=== PATIENT | female | born 1975 | race Caucasian/White ===

== ENCOUNTER 2016-08-03 00:32 | Emergency (ER) | payer OTHER ==
[~2016-08-03] VITALS: Ht 172.7 cm; Wt 82.9 kg
[~2016-08-03 00:32] MED LIST: ADDERALL30 MG PO; BACTRIM,SEPT1 TABLET PO; CIPRO500 MG PO; DELTASONE20 M1 PO; FLAGYL250 MG PO; FLEXERIL10 MG PO; INDOCIN25 MG PO; KEFLEX500 MG PO; LEVAQUIN500 MG PO; LEVAQUIN750 MG PO; LEVOFLOXACIN500 MG PO; LIBRIUM25 MG PO; METHADONE1 MG/1 ML PO; METHADONE10 MG PO; MOBIC15 MG PO; NORCO 5/3251 TABLET PO; PEPCID40 MG PO; PREDNISONE20 MG PO; PYRIDIUM100 MG PO; THIAMINE HCL100 MG PO; ULTRACET1 TABLET PO; VALIUM5 MG PO; ZOFRAN ODT4 MG PO; ZOFRAN ODT8 MG PO; ZOFRAN4 MG PO; ZOLOFT100 MG PO
[2016-08-03 01:02] LABS: CHLORIDE 105 mEq/L (99-109); POTASSIUM 3.4 mEq/L (3.7-5.4); SODIUM 140 mEq/L (136-147)
[2016-08-03 01:04] LABS: GLUCOSE 103 mg/dL (70-99)
[2016-08-03 01:05] LABS: ANION GAP 17 MEQ/L (2-14)
[2016-08-03 01:06] LABS: TOTAL BILIRUBIN 0.5 mg/dL (0.0-1.0)
[2016-08-03 01:07] LABS: ALKALINE PHOSPHATASE 124 IU/L (3-129)
[2016-08-03 01:08] LABS: GFR ESTIMATE (CALCULATED) > 59 mL/min/
[2016-08-03 01:09] LABS: UREA NITROGEN (BUN) 8 mg/dL (9-23)
[2016-08-03 01:11] LABS: LIPASE 58 U/L (1.0-51.0)
[2016-08-03 01:16] LABS: QUANTITATIVE HCG < 4.0 MIU/ML
[2016-08-03 01:38] LABS: EOSINOPHIL (%) 2.2 % (0-5); EOSINOPHIL COUNT 0.1 K/uL (0-0.3); HEMATOCRIT 32.1 % (36.0-46.0); LYMPHOCYTE COUNT 1.7 K/uL (1.0-2.8); MCH 32.7 PG (29.0-34.0); MCHC 34.3 G/DL (30.0-36.0); MCV 95.5 FL (83-99); MEAN PLAT.VOLUME 9.3 uM^3 (9.5-12.4); MONOCYTE (%) 10.3 % (3-12); MONOCYTE COUNT 0.5 K/uL (0-0.8); NEUTROPHIL (%) 53.8 % (45-76); NEUTROPHIL COUNT 2.7 K/uL (1.8-6.4); PLATELET COUNT 187 K/uL (156-360); RBC DIS.WIDTH-CV 13.7 % (11.8-14.6); RBC DIS.WIDTH-SD 43.8 % (39-53); RED BLOOD COUNT 3.36 M/uL (3.80-5.20); WHITE BLOOD COUNT 4.9 K/uL (4.1-10.2)
[2016-08-03 01:47] LABS: PROTHROMBIN TIME 10.1 (9.2-11.2); PTT 23.2 (25-32)
[2016-08-03 03:23] LABS: INFLUENZA A VIRAL ANTIGEN NEGATIVE; INFLUENZA B VIRAL ANTIGEN NEGATIVE
[2016-08-03 04:02] LABS: ADD MIUA? NO; BILIRUBIN NEGATIVE; BLOOD NEGATIVE; COLOR YELLOW ((YELLOW)); GLUCOSE (STRIP) NEGATIVE; KETONES TRACE; LEUKOCYTES NEGATIVE; NITRITE NEGATIVE; PROTEIN (STRIP) TRACE; SPECIFIC GRAVITY 1.031 (1.000-1.030); UCUL ADDED? NO
[2016-08-03 04:11] LABS: ADD MEDTOX COMMENT Y; AMPHETAMINE NEGATIVE (500 ng/mL); BARBITURATES NEGATIVE (200 ng/mL); BENZODIAZEPINES PRESUMPTIVE POSITIVE (150 ng/mL); COCAINE NEGATIVE (150 ng/mL); INTERNAL CONTROLS VALID? YES; METHADONE NEGATIVE (200 ng/mL); METHAMPHETAMINE NEGATIVE (500 ng/mL); OPIATES (MORPHINE) NEGATIVE (100 ng/mL); OXYCODONE NEGATIVE (100 ng/mL); PHENCYCLIDINE NEGATIVE (25 ng/mL); PROPOXYPHENE NEGATIVE (300 ng/mL); THC CANNABINOIDS PRESUMPTIVE POSITIVE (50 ng/mL); TRICYCLIC ANTIDEPRESSANTS NEGATIVE (300 ng/mL)
[2016-08-03] MEDS ORDERED: PROAIR HFA8.5 GM IH (04:22)
[2016-08-03] MEDS ORDERED: TORADOL10 MG PO (04:22)
[2016-08-03] MEDS ORDERED: ZOFRAN4 MG PO (04:22)
[2016-08-03] MEDS ORDERED: ZITHROMAX Z-PA250 MG PO (04:22)
[2016-08-03 04:43] VITALS: BP 118/88
[2016-08-03 05:29] LABS: BENZODIAZEPINES, URINE SCREEN POSITIVE (200 ng/mL)
== END 2016-08-03 05:04 | disposition home or self-care (01) ==
LOC: EME 00:32
PROVIDERS: Emergency Medicine
DX: J20.9 Acute bronchitis, unspecified (principal); J06.9 Acute upper respiratory infection, unspecified; N18.9 Chronic kidney disease, unspecified; M79.1 Myalgia; R05 Cough; F11.20 Opioid dependence, uncomplicated; F17.200 Nicotine dependence, unspecified, uncomplicated
CPT/HCPCS: 71020; 80053; 81003; 83690; 84702; 84999; 85025; 85027; 85610; 85730; 87493; 87502; 94640; 99281; 99284; G0480; J1100; J1885; J2405; J7030

== ENCOUNTER 2016-08-24 14:02 | Emergency (ER) | payer OTHER ==
[~2016-08-24] VITALS: Ht 172.7 cm; Wt 78.4 kg
[~2016-08-24 14:02] MED LIST changes: +PROAIR HFA8.5 GM IH; +TORADOL10 MG PO; +ZITHROMAX Z-PA250 MG PO
[2016-08-24] MEDS ORDERED: ZOLOFT100 MG PO (14:53)
[2016-08-24] MEDS ORDERED: VITAMIN D2000 UNI1 PO (14:53)
[2016-08-24] MEDS ORDERED: ADDERALL30 MG PO (14:54)
[2016-08-24 15:06] LABS: HEMATOCRIT 38.4 % (36.0-46.0); MCH 32.7 PG (29.0-34.0); MCHC 33.1 G/DL (30.0-36.0); MEAN PLAT.VOLUME 9.6 uM^3 (9.5-12.4); PLATELET COUNT 211 K/uL (156-360); RBC DIS.WIDTH-CV 16.6 % (11.8-14.6); RBC DIS.WIDTH-SD 58.5 % (39-53); RED BLOOD COUNT 3.88 M/uL (3.80-5.20); WHITE BLOOD COUNT 6.1 K/uL (4.1-10.2)
[2016-08-24 15:15] LABS: CHLORIDE 109 mEq/L (99-109); POTASSIUM 3.7 mEq/L (3.7-5.4); SODIUM 141 mEq/L (136-147)
[2016-08-24 15:18] LABS: GLUCOSE 96 mg/dL (70-99)
[2016-08-24 15:19] LABS: ANION GAP 10 MEQ/L (2-14); TOTAL BILIRUBIN 1.2 mg/dL (0.0-1.0)
[2016-08-24 15:21] LABS: ALKALINE PHOSPHATASE 115 IU/L (3-129); GFR ESTIMATE (CALCULATED) > 59 mL/min/
[2016-08-24 15:22] LABS: UREA NITROGEN (BUN) 8 mg/dL (9-23)
[2016-08-24 15:25] LABS: LIPASE 16 U/L (1.0-51.0)
[2016-08-24 15:30] LABS: QUANTITATIVE HCG < 4.0 MIU/ML
[2016-08-24 16:58] LABS: ADD MIUA? NO; BILIRUBIN NEGATIVE; BLOOD NEGATIVE; COLOR YELLOW ((YELLOW)); GLUCOSE (STRIP) NEGATIVE; KETONES NEGATIVE; LEUKOCYTES NEGATIVE; NITRITE NEGATIVE; PROTEIN (STRIP) NEGATIVE; SPECIFIC GRAVITY 1.005 (1.000-1.030); UCUL ADDED? NO; UROBILINOGEN 0.2 MG/DL (0.2-1.0)
[2016-08-24] MEDS ORDERED: GABAPENTIN300 MG PO (18:18)
[2016-08-24] MEDS ORDERED: LIBRIUM25 MG PO (18:18)
[2016-08-24 19:06] VITALS: BP 119/80
== END 2016-08-24 19:07 | disposition home or self-care (01) ==
LOC: EME 14:02
DX: F10.230 Alcohol dependence with withdrawal, uncomplicated (principal); R10.31 Right lower quadrant pain; Z88.1 Allergy status to other antibiotic agents; Z88.0 Allergy status to penicillin; Z88.2 Allergy status to sulfonamides; Z72.0 Tobacco use; F11.21 Opioid dependence, in remission
CPT/HCPCS: 74177; 80053; 81003; 83690; 84702; 85027; 99281; 99285; J2060; J7030

== ENCOUNTER 2017-07-05 20:15 | Emergency (ER) | payer OTHER ==
[~2017-07-05 20:15] MED LIST changes: +GABAPENTIN300 MG PO; +VITAMIN D2000 UNI1 PO
== END 2017-07-05 20:45 | disposition left against medical advice (07) ==
LOC: EME 20:15
DX: M79.89 Other specified soft tissue disorders (principal); Z53.21 Procedure and treatment not carried out due to patient leaving prior to being seen by health care provider

== ENCOUNTER 2017-07-05 21:40 | Emergency (ER) | payer OTHER ==
[~2017-07-05] VITALS: Ht 172.7 cm; Wt 73.7 kg
[2017-07-06 00:54] LABS: HEMATOCRIT 37.8 % (36.0-46.0); HEMOGLOBIN 13.2 G/DL (11.9-15.5); MCHC 34.9 G/DL (30.0-36.0); MCV 97.4 FL (83-99); PLATELET COUNT 165 K/uL (156-360); RBC DIS.WIDTH-SD 49.5 % (39-53); RED BLOOD COUNT 3.88 M/uL (3.80-5.20); WHITE BLOOD COUNT 5.1 K/uL (4.1-10.2)
[2017-07-06 01:12] LABS: CHLORIDE 103 mEq/L (99-109); POTASSIUM 3.4 mEq/L (3.7-5.4); SODIUM 141 mEq/L (136-147)
[2017-07-06 01:15] LABS: GLUCOSE 104 mg/dL (70-99); TOTAL PROTEIN 6.9 g/dL (6.4-8.3)
[2017-07-06 01:16] LABS: TOTAL BILIRUBIN 0.4 mg/dL (0.0-1.0)
[2017-07-06 01:18] LABS: ALKALINE PHOSPHATASE 103 IU/L (3-129); CREATININE 0.6 mg/dL (0.6-1.3); GFR ESTIMATE (CALCULATED) > 59 mL/min/
[2017-07-06 01:19] LABS: UREA NITROGEN (BUN) 13 mg/dL (9-23)
[2017-07-06 01:20] LABS: AST (GOT) 49 IU/L (2-34)
[2017-07-06 01:21] LABS: ALT (GPT) 20 IU/L (3-49)
[2017-07-06 01:22] LABS: LIPASE 24 U/L (1.0-51.0)
[2017-07-06 05:55] VITALS: BP 106/87
== END 2017-07-06 06:04 | disposition home or self-care (01) ==
LOC: EME 21:40
PROVIDERS: Physician Assistant
DX: F10.129 Alcohol abuse with intoxication, unspecified (principal); G89.29 Other chronic pain; M79.642 Pain in left hand; R10.9 Unspecified abdominal pain; M79.89 Other specified soft tissue disorders; F17.200 Nicotine dependence, unspecified, uncomplicated; Z88.2 Allergy status to sulfonamides; Z88.0 Allergy status to penicillin; Z88.1 Allergy status to other antibiotic agents
CPT/HCPCS: 80053; 83690; 85027; 93005; 93971; 99281; 99285

== ENCOUNTER 2017-07-09 23:49 | Emergency (ER) | payer OTHER ==
[~2017-07-09] VITALS: Ht 172.7 cm; Wt 72.2 kg
[2017-07-10 01:31] LABS: HEMATOCRIT 33.4 % (36.0-46.0); HEMOGLOBIN 11.7 G/DL (11.9-15.5); MCH 34.5 PG (29.0-34.0); MCV 98.5 FL (83-99); RBC DIS.WIDTH-CV 13.7 % (11.8-14.6); RBC DIS.WIDTH-SD 49.7 % (39-53); RED BLOOD COUNT 3.39 M/uL (3.80-5.20); WHITE BLOOD COUNT 4.2 K/uL (4.1-10.2)
[2017-07-10 01:41] LABS: ALBUMIN 3.7 g/dL (3.2-4.8); CHLORIDE 100 mEq/L (99-109); SODIUM 135 mEq/L (136-147)
[2017-07-10 01:43] LABS: GLUCOSE 115 mg/dL (70-99); TOTAL PROTEIN 6.3 g/dL (6.4-8.3)
[2017-07-10 01:45] LABS: TOTAL BILIRUBIN 0.4 mg/dL (0.0-1.0)
[2017-07-10 01:46] LABS: PHOSPHORUS 2.5 mg/dL (2.5-4.9); SERUM ETHYL ALCOHOL 212 mg/dL
[2017-07-10 01:47] LABS: ALKALINE PHOSPHATASE 83 IU/L (3-129); CREATININE 0.7 mg/dL (0.6-1.3); GFR ESTIMATE (CALCULATED) > 59 mL/min/
[2017-07-10 01:48] LABS: AST (GOT) 49 IU/L (2-34); UREA NITROGEN (BUN) 9 mg/dL (9-23)
[2017-07-10 01:50] LABS: ALT (GPT) 17 IU/L (3-49)
[2017-07-10 03:16] LABS: PLAT.SUFFICIENCY DECREASED
[2017-07-10 03:17] LABS: PLATELET COUNT 108 K/uL (156-360)
[2017-07-10 03:30] LABS: AMPHETAMINE NEGATIVE (500 ng/mL); BARBITURATES NEGATIVE (200 ng/mL); BENZODIAZEPINES NEGATIVE (150 ng/mL); BUPRENORPHINE NEGATIVE (10 ng/mL); COCAINE NEGATIVE (150 ng/mL); METHADONE NEGATIVE (200 ng/mL); METHAMPHETAMINE NEGATIVE (500 ng/mL); OPIATES (MORPHINE) NEGATIVE (100 ng/mL); OXYCODONE PRESUMPTIVE POSITIVE (100 ng/mL); PHENCYCLIDINE NEGATIVE (25 ng/mL); PROPOXYPHENE NEGATIVE (300 ng/mL); THC CANNABINOIDS NEGATIVE (50 ng/mL); TRICYCLIC ANTIDEPRESSANTS NEGATIVE (300 ng/mL)
[2017-07-10] MEDS ORDERED: ATIVAN1 MG PO (07:18)
[2017-07-10 07:38] VITALS: BP 120/74
== END 2017-07-10 07:40 | disposition home or self-care (01) ==
LOC: EME 23:49
PROVIDERS: Emergency Medicine
DX: F13.239 Sedative, hypnotic or anxiolytic dependence with withdrawal, unspecified (principal); F10.10 Alcohol abuse, uncomplicated; F17.200 Nicotine dependence, unspecified, uncomplicated; Z88.0 Allergy status to penicillin; Z88.2 Allergy status to sulfonamides
CPT/HCPCS: 80053; 84100; 84703; 85027; 99281; 99285; G0480; J2060

== ENCOUNTER 2017-07-10 16:52 | Emergency (ER) | payer OTHER ==
[~2017-07-10] VITALS: Ht 172.7 cm; Wt 78.7 kg
[~2017-07-10 16:52] MED LIST changes: +ATIVAN1 MG PO
[2017-07-11 02:12] VITALS: BP 152/90
== END 2017-07-11 02:14 | disposition home or self-care (01) ==
LOC: EME 16:52
DX: F10.239 Alcohol dependence with withdrawal, unspecified (principal); Y90.9 Presence of alcohol in blood, level not specified; G89.29 Other chronic pain; M54.9 Dorsalgia, unspecified; F17.200 Nicotine dependence, unspecified, uncomplicated; Z86.14 Personal history of Methicillin resistant Staphylococcus aureus infection; Z88.2 Allergy status to sulfonamides; Z88.0 Allergy status to penicillin
CPT/HCPCS: 99281; 99284